=== PATIENT | female | born 1960 | race Caucasian/White ===

== ENCOUNTER → 2017-09-27 | Outpatient (CLI) | payer MEDICARE, OTHER, SELFPAY | PROVIDERS: Visit Provider Emergency Medicine | DX: R19.7 Diarrhea, unspecified (principal) | CPT/HCPCS: 87507 ==

== ENCOUNTER 2017-09-29 14:43 | Emergency (ER) | payer MEDICARE, OTHER, SELFPAY | END 2017-09-29 17:39 | disposition home or self-care (01) | PROVIDERS: Emergency Provider Emergency Medicine; Visit Provider Emergency Medicine | DX: R19.7 Diarrhea, unspecified (principal); G89.4 Chronic pain syndrome; F12.90 Cannabis use, unspecified, uncomplicated; Z79.899 Other long term (current) drug therapy; I25.10 Atherosclerotic heart disease of native coronary artery without angina pectoris; J44.9 Chronic obstructive pulmonary disease, unspecified | CPT/HCPCS: 36415; 74022; 80053; 83735; 85025; 87507; 96365; 96375; 99284 ==

== ENCOUNTER → 2017-10-24 11:08 | Outpatient (REF) | payer MEDICARE, OTHER, SELFPAY ==
[2017-10-24 13:43] LABS: Amphetamine/Metha Screen,Urine Negative ng/mL (<1000); Barbiturates Screen,Urine Negative ng/mL (<200); Benzodiazepines Screen,Urine Negative ng/mL (200); Cannabinoid Screen,Urine Positive ng/mL (<50); Cocaine Screen,Urine Negative ng/g (<300); Methadone Screen,Urine Negative ng/mL (<300); Opiate Screen,Urine Positive ng/mL (<300); Phencyclidine Screen,Urine Negative ng/mL (<25)
== END ==
LOC: LAB 11:08
PROVIDERS: Visit Provider Emergency Medicine
DX: Z79.899 Other long term (current) drug therapy (principal)
CPT/HCPCS: 80305

== ENCOUNTER → 2017-11-09 13:51 | Day surgery (SDC) | payer MEDICARE, OTHER, SELFPAY ==
[2017-11-09 14:20] VITALS: BP 136/73; PULSE 73; RESP 18; TEMP 36.4; BMI 29.6
--- NOTE | 2017-11-09 15:00 | HMH.PMPROC ---
- Procedure Date: 11/09/17 Time: 15:00 Anesthesiologist:: Иван Molina MD Complications:: None Pre-procedure Diagnosis:: Sacroiliitis Post-procedure Diagnosis:: Same Indications for Procedure:: Patient is a pleasant 57-year-old white female who we are treating for right sided hip pain. She has not a surgical candidate. She has tenderness over the right SI joint. She has a positive Coni's test on the right side. Patient had back surgery 2003. She has pain radiating to the right groin. We will do right SI joint injection to see if this will help some of her pain symptoms. Procedure Details:: Right SI joint injection under fluoroscopy Informed consent was obtained and the risks and benefits of the procedure was going to the patient. Patient was taken to the procedure room. Patient was placed prone on the procedure table. The right hip was prepped using ChloraPrep. The skin and subcutaneous tissues were anesthetized using lidocaine. I placed a 22-gauge spinal needle into the inferior aspect of the right SI joint. Needle placement was confirmed with dye. After this we injected 5 mL bupivacaine 0.25% and Depo-Medrol 40 mg into the right SI joint. The patient tolerated the procedure well with no complication. Plan and Disposition:: We will follow-up with the patient in 2-3 weeks. We will not prescribe any narcotics to this patient as she has a history of marijuana use. She may be a candidate for lumbar epidural steroid injections if this does not help.
[2017-11-09 15:07] VITALS: BP 154/77; PULSE 80; RESP 18
[2017-11-09 15:08] VITALS: BP 155/74; PULSE 80; RESP 20
[2017-11-09 15:16] VITALS: BP 130/72; PULSE 66; RESP 20; O2SAT 98
== END ==
PROVIDERS: Family Provider Emergency Medicine; PCP Emergency Medicine; Visit Provider Anesthesiology
DX: M46.1 Sacroiliitis, not elsewhere classified (principal)
CPT/HCPCS: 27096; G0260; J1040; Q9966

== ENCOUNTER 2017-11-23 16:08 | Emergency (ER) | payer MEDICARE, OTHER, SELFPAY ==
[2017-11-23 17:31] VITALS: BP 144/81; PULSE 80; RESP 20; TEMP 37.2; O2SAT 100; BMI 62.8
--- NOTE | 2017-11-23 17:37 | XR_ITS ---
XR hand LT min 3V HISTORY: Pain following injury ITS.REASON: laceration ORDERING PHYSICIAN: Bradly Serra MD PATIENT AGE: 57 years COMPARISON: None FINDINGS: No fracture or dislocation. No lytic or blastic change. There is normal mineralization.. The joint spaces are well-preserved. No significant degenerative/arthritic changes. No erosive changes evident.. IMPRESSION: Negative, no acute finding
--- NOTE | 2017-11-23 18:03 | HMH.EDGENADL ---
ED Disposition Clinical Impression: Laceration Disposition: Home, Self-Care Condition on Discharge: Fair Additional Instructions: Keep stitches dry for 48 hours and then may get hand in water Prescriptions: cephALEXin [Keflex 500mg Cap] 500 mg PO Q6H #40 cap Mupirocin [Bactroban 2% Ointment 22gm tube] 1 applicatio TP DAILY #1 tube Referrals: Ziggy Leach MD [Primary Care Provider] - Time of Disposition: 18:50 - Critical Care Critical Care Time: No Attestation: On 11/23/17, the high probability of a clinically significant, sudden or life threatening deterioration of the following system(s) required my full and direct attention, intervention and personal management. The time I documented below is in addition to time spent performing reported procedures but includes the following listed in this critical care notation. Medical Decision Making - Medical Records Medical records reviewed: Yes: I reviewed the patient's medical records. Vital Signs: 11/23/17 17:31 Temperature 98.9 F Temperature Source Tympanic Pulse Rate [Right Radial] 80 Respiratory Rate 20 Blood Pressure [Right Arm] 144/81 Blood Pressure Mean [Right Arm] 102 Blood Pressure Position [Right Arm] Sitting 02 Sat by Pulse Oximetry 100 Oxygen Delivery Method Room Air Orders (Tests/Meds): ED MEDICATIONS Discontinued Medications Generic Name Dose Route Start Last Admin Trade Name Freq PRN Reason Stop Dose Admin Tetanus/Diphtheria Toxoids 0.5 ml 11/23/17 17:37 11/23/17 17:42 Tenivac 0.5ml Syringe IM 11/23/17 17:38 0.5 ml .ONCE ONE Administration ORDERS Category Date Time Status XR hand LT min 3V Stat Exams 11/23/17 17:37 Taken - Antonio Inquiry Pt receiving controlled substance: No Antonio was queried for this patient: No General Adult HPI - General Chief complaint: Wound/Laceration Stated complaint: AO [id number] Accidental Lac L Wrist Time Seen by Provider: 11/23/17 18:02 Mode of Arrival: Ambulatory Limitations: No Limitations Description of Symptoms (Recalled from ER Triage Doc. by RN): left hand laceration after cutting her hand on a knife while fixing a sweeper' - History of Present Illness HPI narrative: Pt says she was cleaning a sweeper with a knife about 4:30 PM and accidentally cut her left hand over the hypothenar area and there is about a 4cm laceration there....given tetanus in the ED and will need stitches for this laceration Onset (ago): hour(s) Location: left, upper extremity (hand) Severity: moderate Severity scale (1-10): 5 Quality: sharp - Related Data Home Medications Medication Instructions Recorded Confirmed aripiprazole 5 mg tablet 5 mg PO ONCE 10/23/17 estradiol 1 mg tablet 1 mg PO ONCE 10/23/17 Previous Rx's Medication Instructions Recorded clonazepam 0.5 mg tablet 0.5 mg PO BID 30 Days #60 tab 10/24/17 fluoxetine 40 mg capsule 40 mg PO QAM 90 Days #90 cap 10/24/17 gabapentin 800 mg tablet 800 mg PO TID 30 Days #90 tab 10/24/17 Mupirocin [Bactroban 2% Ointment 1 applicatio TP DAILY #1 tube 11/23/17 22gm tube] cephALEXin [Keflex 500mg Cap] 500 mg PO Q6H #40 cap 11/23/17 Allergies Allergy/AdvReac Type Severity Reaction Status Date / Time No Known Allergies Allergy Verified 11/20/17 14:14 [facility] History I have reviewed the patient's past medical history: Yes Medical History: Reports:: Chronic Obstructive Pulmonary Disease (COPD), Hyperlipidemia, Hypertension Denies:: Cancer, Diabetes Mellitus Type 1, Diabetes Mellitus Type 2, MRSA, Seizures Other Medical History: Denies: Blood Transfusion Reaction Other Surgeries: Yes: Colonoscopy, Hysterectomy-Total, Other Amputation: No Fractures: No - *Social History Smoking Status: Current every day smoker Tobacco Type: cigarettes # Packs/Day (cigarettes): 1 Alcohol Intake: never Substance Use Type: denies use Occupational Status: disabled Housing: house Household Members: spouse - Ps
--- NOTE | 2017-11-23 18:08 | ED_ITS ---
ED Disposition Clinical Impression: Laceration Disposition: Home, Self-Care Condition on Discharge: Fair Additional Instructions: Keep stitches dry for 48 hours and then may get hand in water Prescriptions: cephALEXin [Keflex 500mg Cap] 500 mg PO Q6H #40 cap Mupirocin [Bactroban 2% Ointment 22gm tube] 1 applicatio TP DAILY #1 tube Referrals: Ziggy Leach MD [Primary Care Provider] - Time of Disposition: 18:50 - Critical Care Critical Care Time: No Attestation: On 11/23/17, the high probability of a clinically significant, sudden or life threatening deterioration of the following system(s) required my full and direct attention, intervention and personal management. The time I documented below is in addition to time spent performing reported procedures but includes the following listed in this critical care notation. Medical Decision Making - Medical Records Medical records reviewed: Yes: I reviewed the patient's medical records. Vital Signs: 11/23/17 17:31 Temperature 98.9 F Temperature Source Tympanic Pulse Rate [Right Radial] 80 Respiratory Rate 20 Blood Pressure [Right Arm] 144/81 Blood Pressure Mean [Right Arm] 102 Blood Pressure Position [Right Arm] Sitting 02 Sat by Pulse Oximetry 100 Oxygen Delivery Method Room Air Orders (Tests/Meds): ED MEDICATIONS Discontinued Medications Generic Name Dose Route Start Last Admin Trade Name Freq PRN Reason Stop Dose Admin Tetanus/Diphtheria Toxoids 0.5 ml 11/23/17 17:37 11/23/17 17:42 Tenivac 0.5ml Syringe IM 11/23/17 17:38 0.5 ml .ONCE ONE Administration ORDERS Category Date Time Status XR hand LT min 3V Stat Exams 11/23/17 17:37 Taken - Antonio Inquiry Pt receiving controlled substance: No Antonio was queried for this patient: No General Adult HPI - General Chief complaint: Wound/Laceration Stated complaint: AO [id number] Accidental Lac L Wrist Time Seen by Provider: 11/23/17 18:02 Mode of Arrival: Ambulatory Limitations: No Limitations Description of Symptoms (Recalled from ER Triage Doc. by RN): left hand laceration after cutting her hand on a knife while fixing a sweeper' - History of Present Illness HPI narrative: Pt says she was cleaning a sweeper with a knife about 4:30 PM and accidentally cut her left hand over the hypothenar area and there is about a 4cm laceration there....given tetanus in the ED and will need stitches for this laceration Onset (ago): hour(s) Location: left, upper extremity (hand) Severity: moderate Severity scale (1-10): 5 Quality: sharp - Related Data Home Medications Medication Instructions Recorded Confirmed aripiprazole 5 mg tablet 5 mg PO ONCE 10/23/17 estradiol 1 mg tablet 1 mg PO ONCE 10/23/17 Previous Rx's Medication Instructions Recorded clonazepam 0.5 mg tablet 0.5 mg PO BID 30 Days #60 tab 10/24/17 fluoxetine 40 mg capsule 40 mg PO QAM 90 Days #90 cap 10/24/17 gabapentin 800 mg tablet 800 mg PO TID 30 Days #90 tab 10/24/17 Mupirocin [Bactroban 2% Ointment 1 applicatio TP DAILY #1 tube 11/23/17 22gm tube] cephALEXin [Keflex 500mg Cap] 500 mg PO Q6H #40 cap 11/23/17 Allergies Allergy/AdvReac Type Severity Reaction Status D
[2017-11-23 19:23] VITALS: BP 125/75; PULSE 80; RESP 18; TEMP 36.8; O2SAT 98
== END 2017-11-23 19:23 | disposition home or self-care (01) ==
PROVIDERS: Emergency Provider General Practice; Family Provider Emergency Medicine; PCP Emergency Medicine
DX: S61.512A Laceration without foreign body of left wrist, initial encounter (principal); E78.5 Hyperlipidemia, unspecified; I10 Essential (primary) hypertension; F17.210 Nicotine dependence, cigarettes, uncomplicated; W26.0XXA Contact with knife, initial encounter; Y92.019 Unspecified place in single-family (private) house as the place of occurrence of the external cause; Z23 Encounter for immunization; J44.9 Chronic obstructive pulmonary disease, unspecified
CPT/HCPCS: 12002; 73130; 90471; 90714; 99281

== ENCOUNTER 2017-12-03 12:42 | Emergency (ER) | payer MEDICARE, OTHER, SELFPAY ==
[2017-12-03 13:17] VITALS: BP 155/80; PULSE 84; RESP 20; TEMP 37.1; O2SAT 98; BMI 29.4
--- NOTE | 2017-12-03 13:33 | XR_ITS ---
XR wrist LT 2V HISTORY: ITS.REASON: laceration, swelling. ORDERING PHYSICIAN: Luis Fernando Mcmahon MD PATIENT AGE: 57 years COMPARISON: None FINDINGS: Overlying bandage artifact. No fracture or dislocation. No radiopaque foreign body. There is a lucency through the mid aspect of an accessory center of ossification at the tip of the ulnar styloid. This however had a similar appearance on 11/23/2017 but is more apparent today due to the difference in positioning and may be developmental or due to old injury. IMPRESSION: No acute finding
--- NOTE | 2017-12-03 13:58 | HMH.EDUPEXT ---
ED Disposition Clinical Impression: Post-op pain Disposition: Home, Self-Care Condition on Discharge: Good Prescriptions: Etodolac [Etodolac 200mg Cap] 200 mg PO BID #14 cap Sulfamethoxazole/Trimethoprim [Bactrim DS tablet] 1 each PO BID #14 tab Referrals: Ziggy Leach MD [Primary Care Provider] - Time of Disposition: 14:05 - Critical Care Critical Care Time: No Attestation: On 12/03/17, the high probability of a clinically significant, sudden or life threatening deterioration of the following system(s) required my full and direct attention, intervention and personal management. The time I documented below is in addition to time spent performing reported procedures but includes the following listed in this critical care notation. Medical Decision Making - Medical Records Medical records reviewed: Yes: I reviewed the patient's medical records. Vital Signs: 12/03/17 13:17 12/03/17 14:42 Temperature 98.8 F 98.8 F Temperature Source Oral Pulse Rate 84 Pulse Rate [Right Radial] 84 Respiratory Rate 20 20 Blood Pressure 155/80 Blood Pressure [Right Arm] 155/80 Blood Pressure Mean [Right Arm] 105 Blood Pressure Source [Right Arm] Automatic Cuff Blood Pressure Position Sitting Blood Pressure Position [Right Arm] Sitting 02 Sat by Pulse Oximetry 98 Oxygen Delivery Method Room Air Room Air - Antonio Inquiry Pt receiving controlled substance: No Upper Extremity HPI - General Chief Complaint: Extremity Injury, Upper Stated Complaint: left hand injury AO [id number] Mode of Arrival: Ambulatory Limitations: Physical Limitations Description of Symptoms (Recalled from ER Triage Doc. by RN): S/P suture repair of left ulnar wrist. Pt states she took out her stitches out Sunday and they were placed here on 11/24. Wound is still open and redness and inflammation extending down her forearm. - History of Present Illness complaint: injury to: left, wrist Onset (ago): day(s) Other Extremity Injury: Left: hand, wrist Other injuries: none Handedness: right Exacerbating factors: none Context: other (s/p recent surgical repair) - Related Data Home Medications Medication Instructions Recorded Confirmed aripiprazole 5 mg tablet 5 mg PO ONCE 10/23/17 estradiol 1 mg tablet 1 mg PO ONCE 10/23/17 Previous Rx's Medication Instructions Recorded clonazepam 0.5 mg tablet 0.5 mg PO BID 30 Days #60 tab 10/24/17 fluoxetine 40 mg capsule 40 mg PO QAM 90 Days #90 cap 10/24/17 gabapentin 800 mg tablet 800 mg PO TID 30 Days #90 tab 10/24/17 Mupirocin [Bactroban 2% Ointment 1 applicatio TP DAILY #1 tube 11/23/17 22gm tube] cephALEXin [Keflex 500mg Cap] 500 mg PO Q6H #40 cap 11/23/17 Etodolac [Etodolac 200mg Cap] 200 mg PO BID #14 cap 12/03/17 Sulfamethoxazole/Trimethoprim 1 each PO BID #14 tab 12/03/17 [Bactrim DS tablet] Allergies Allergy/AdvReac Type Severity Reaction Status Date / Time No Known Allergies Allergy Verified 11/20/17 14:14 [facility] History I have reviewed the patient's past medical history: Yes Medical History: Reports:: Chronic Obstructive Pulmonary Disease (COPD), Hyperlipidemia, Hypertension Denies:: Cancer, Diabetes Mellitus Type 1, Diabetes Mellitus Type 2, MRSA, Seizures Other Medical History: Denies: Blood Transfusion Reaction Comment: Bipolar,LDD Other Surgeries: Yes: Colonoscopy, Hysterectomy-Total, Other Amputation: No Fractures: No Comment: 1987- Primary . 1991- BTL. 1997- TVH,BSO. 1999- LAP CHOLECYSTECTOMY. 2003- DISCECTOMY--LUMBAR? - Social History Smoking Status: Current every day smoker Tobacco Type: cigarettes # Packs/Day (cigarettes): 1 Alcohol Intake: never Substance Use Type: denies use Occupational Status: disabled Housing: house Household Members: spouse - Psychiatric History Expresses thoughts of harming self/others: None Suicide Plan Description: No Plan Family Hx:: Heart Attack Comment: alzheimer,parkinsons ROS Obtained: Yes
--- NOTE | 2017-12-03 14:05 | ED_ITS ---
ED Disposition Clinical Impression: Post-op pain Disposition: Home, Self-Care Condition on Discharge: Good Prescriptions: Etodolac [Etodolac 200mg Cap] 200 mg PO BID #14 cap Sulfamethoxazole/Trimethoprim [Bactrim DS tablet] 1 each PO BID #14 tab Referrals: Ziggy Leach MD [Primary Care Provider] - Time of Disposition: 14:05 - Critical Care Critical Care Time: No Attestation: On 12/03/17, the high probability of a clinically significant, sudden or life threatening deterioration of the following system(s) required my full and direct attention, intervention and personal management. The time I documented below is in addition to time spent performing reported procedures but includes the following listed in this critical care notation. Medical Decision Making - Medical Records Medical records reviewed: Yes: I reviewed the patient's medical records. Vital Signs: 12/03/17 13:17 12/03/17 14:42 Temperature 98.8 F 98.8 F Temperature Source Oral Pulse Rate 84 Pulse Rate [Right Radial] 84 Respiratory Rate 20 20 Blood Pressure 155/80 Blood Pressure [Right Arm] 155/80 Blood Pressure Mean [Right Arm] 105 Blood Pressure Source [Right Arm] Automatic Cuff Blood Pressure Position Sitting Blood Pressure Position [Right Arm] Sitting 02 Sat by Pulse Oximetry 98 Oxygen Delivery Method Room Air Room Air - Antonio Inquiry Pt receiving controlled substance: No Upper Extremity HPI - General Chief Complaint: Extremity Injury, Upper Stated Complaint: left hand injury AO [id number] Mode of Arrival: Ambulatory Limitations: Physical Limitations Description of Symptoms (Recalled from ER Triage Doc. by RN): S/P suture repair of left ulnar wrist. Pt states she took out her stitches out Sunday and they were placed here on 11/24. Wound is still open and redness and inflammation extending down her forearm. - History of Present Illness complaint: injury to: left, wrist Onset (ago): day(s) Other Extremity Injury: Left: hand, wrist Other injuries: none Handedness: right Exacerbating factors: none Context: other (s/p recent surgical repair) - Related Data Home Medications Medication Instructions Recorded Confirmed aripiprazole 5 mg tablet 5 mg PO ONCE 10/23/17 estradiol 1 mg tablet 1 mg PO ONCE 10/23/17 Previous Rx's Medication Instructions Recorded clonazepam 0.5 mg tablet 0.5 mg PO BID 30 Days #60 tab 10/24/17 fluoxetine 40 mg capsule 40 mg PO QAM 90 Days #90 cap 10/24/17 gabapentin 800 mg tablet 800 mg PO TID 30 Days #90 tab 10/24/17 Mupirocin [Bactroban 2% Ointment 1 applicatio TP DAILY #1 tube 11/23/17 22gm tube] cephALEXin [Keflex 500mg Cap] 500 mg PO Q6H #40 cap 11/23/17 Etodolac [Etodolac 200mg Cap] 200 mg PO BID #14 cap 12/03/17 Sulfamethoxazole/Trimethoprim 1 each PO BID #14 tab 12/03/17 [Bactrim DS tablet] Allergies Allergy/AdvReac Type Severity Reaction Status Date / Time No Known Allergies Allergy Verified 11/20/17 14:14 [facility] History I have reviewed the patient's past medical history: Yes Medical History: Reports:: Chronic Obstructive Pulmonary Disease (COPD), Hyperlipidemia, Hypertension Denies:: Cancer, Diabetes Mellitus Type 1, Diabetes Mellitus Type 2, MRSA, Seizures Other Medical History: Denies: Bloo
[2017-12-03 14:42] VITALS: BP 155/80; PULSE 84; RESP 20; TEMP 37.1; O2SAT 98
== END 2017-12-03 14:46 | disposition home or self-care (01) ==
PROVIDERS: Emergency Provider Emergency Medicine; Family Provider Emergency Medicine; PCP Emergency Medicine
DX: G89.18 Other acute postprocedural pain (principal); M25.532 Pain in left wrist; I10 Essential (primary) hypertension; J44.9 Chronic obstructive pulmonary disease, unspecified; Z79.890 Hormone replacement therapy; Z79.899 Other long term (current) drug therapy
CPT/HCPCS: 73100; 99282

== ENCOUNTER → 2017-12-24 13:15 | Outpatient (POV) | payer MEDICARE, OTHER, SELFPAY ==
[2017-12-24 13:56] VITALS: BP 149/74; PULSE 89; RESP 16; O2SAT 98; BMI 29.2
--- NOTE | 2017-12-24 14:43 | P.CONS_ITS ---
[facility] Pain Management SOAP Note Subjective:: This patient is a pleasant 57-year-old white female who we are treating for right sided hip pain. She received a right SI joint injection which did not give her much benefit. She says that she has had injections previously had a pain clinic in [facility]. I have offered her a lumbar epidural steroid injection. She has had previous back surgery in 2003. I believe that she would benefit from a lumbar epidural steroid injections since she did not get any benefit from the SI joint injection. Patient does not seem interested at this time. She is going to think about it and let us know. Objective:: Alert and oriented ?3 in no acute distress. Patient does have an antalgic gait. Motor strength of the lower extremities is 5/5. There is no gross sensory deficit. She is tender over lower lumbar spine. Assessment:: Degenerative disc disease of lumbar spine with postlaminectomy syndrome and lumbar radiculopathy symptoms Plan:: She is going to think about a lumbar epidural steroid injection and let us know. Will follow up with her on a as needed basis.
== END ==
PROVIDERS: Family Provider Emergency Medicine; PCP Emergency Medicine; Visit Provider Anesthesiology
DX: M54.16 Radiculopathy, lumbar region (principal)
CPT/HCPCS: 99212

== ENCOUNTER → 2018-04-16 13:10 | Outpatient (REF) | payer MEDICARE, OTHER, SELFPAY ==
[2018-04-16 19:01] LABS: Amphetamine/Metha Screen,Urine Negative ng/mL (<1000); Barbiturates Screen,Urine Negative ng/mL (<200); Benzodiazepines Screen,Urine Negative ng/mL (<200); Cannabinoid Screen,Urine Positive ng/mL (<50); Cocaine Screen,Urine Negative ng/mL (<300); Methadone Screen,Urine Negative ng/mL (<300); Opiate Screen,Urine Positive ng/mL (<300); Phencyclidine Screen,Urine Negative ng/mL (<25)
[2018-05-01 07:18] LABS: Alprazolam Negative (Cutoff=100); Benzodiazepines Positive ng/mL (Cutoff=100); Clonazepam Positive (.); Codeine Negative (Cutoff=100); Flurazepam Negative (Cutoff=100); Hydrocodone Positive (.); Hydromorphone Negative (Cutoff=100); Lorazepam Negative (Cutoff=100); Midazolam Negative (Cutoff=100); Morphine Negative (Cutoff=100); Temazepam Negative (Cutoff=100); Triazolam Negative (Cutoff=100)
[2018-05-03 06:32] LABS: Clonazepam Confirm 115 ng/mL (Cutoff=100); Hydrocodone Confirm 1553 ng/mL (Cutoff=100); Opiates Positive (.)
== END ==
LOC: LAB 13:10
PROVIDERS: Physician Assistant; Visit Provider Emergency Medicine
DX: Z79.899 Other long term (current) drug therapy (principal)
CPT/HCPCS: 80305; 80346; 80361; G0480

== ENCOUNTER → 2018-07-01 12:57 | Outpatient (CLI) | payer MEDICARE, OTHER, SELFPAY ==
[2018-07-01 13:25] VITALS: PULSE 77; PULSE 80
== END ==
PROVIDERS: Family Provider Emergency Medicine; PCP Emergency Medicine; Visit Provider Emergency Medicine
DX: J44.9 Chronic obstructive pulmonary disease, unspecified (principal)
CPT/HCPCS: 94060; 94640

== ENCOUNTER → 2018-10-18 19:15 | Outpatient (CLI) | payer MEDICARE, OTHER, SELFPAY ==
[2018-10-18 20:32] LABS: Amphetamine/Metha Screen,Urine Negative ng/mL (<1000); Barbiturates Screen,Urine Negative ng/mL (<200); Benzodiazepines Screen,Urine Negative ng/mL (<200); Cannabinoid Screen,Urine Positive ng/mL (<50); Cocaine Screen,Urine Negative ng/mL (<300); Methadone Screen,Urine Negative ng/mL (<300); Opiate Screen,Urine Positive ng/mL (<300); Phencyclidine Screen,Urine Negative ng/mL (<25)
[2018-10-25 08:47] LABS: Alprazolam Negative (Cutoff=100); Benzodiazepines Positive ng/mL (Cutoff=100); Clonazepam Positive (.); Codeine Negative (Cutoff=100); Flurazepam Negative (Cutoff=100); Hydrocodone Positive (.); Hydromorphone Positive (.); Lorazepam Negative (Cutoff=100); Midazolam Negative (Cutoff=100); Morphine Negative (Cutoff=100); Temazepam Negative (Cutoff=100); Triazolam Negative (Cutoff=100)
[2018-10-25 17:15] LABS: Clonazepam Confirm 173 ng/mL (Cutoff=100); Hydrocodone Confirm 1789 ng/mL (Cutoff=100); Hydromorphone Confirm 113 ng/mL (Cutoff=100); Opiates Positive (.)
== END ==
PROVIDERS: Visit Provider Emergency Medicine
DX: Z79.899 Other long term (current) drug therapy (principal)
CPT/HCPCS: 80305; 80346; 80361; G0480

== ENCOUNTER → 2019-04-23 17:58 | Outpatient (CLI) | payer MEDICARE, OTHER, SELFPAY ==
[2019-04-23 19:04] LABS: Amphetamine/Metha Screen,Urine Negative ng/mL (<1000); Barbiturates Screen,Urine Negative ng/mL (<200); Benzodiazepines Screen,Urine Negative ng/mL (<200); Cannabinoid Screen,Urine Negative ng/mL (<50); Cocaine Screen,Urine Negative ng/mL (<300); Methadone Screen,Urine Negative ng/mL (<300); Opiate Screen,Urine Negative ng/mL (<300); Phencyclidine Screen,Urine Negative ng/mL (<25)
[2019-04-29 20:08] LABS: Alprazolam Negative (Cutoff=100); Benzodiazepines Positive ng/mL (Cutoff=100); Clonazepam Positive (.); Flurazepam Negative (Cutoff=100); Lorazepam Negative (Cutoff=100); Midazolam Negative (Cutoff=100); Temazepam Negative (Cutoff=100); Triazolam Negative (Cutoff=100)
[2019-05-01 08:05] LABS: Clonazepam Confirm 158 ng/mL (Cutoff=100)
== END ==
PROVIDERS: Visit Provider Emergency Medicine
DX: Z79.899 Other long term (current) drug therapy (principal)
CPT/HCPCS: 80305; 80346

== ENCOUNTER → 2019-07-23 17:46 | Outpatient (CLI) | payer MEDICARE, OTHER, SELFPAY ==
[2019-07-23 20:20] LABS: Amphetamine/Metha Screen,Urine Negative ng/mL (<1000); Barbiturates Screen,Urine Negative ng/mL (<200); Benzodiazepines Screen,Urine Negative ng/mL (<200); Cannabinoid Screen,Urine Negative ng/mL (<50); Cocaine Screen,Urine Negative ng/mL (<300); Methadone Screen,Urine Negative ng/mL (<300); Opiate Screen,Urine Negative ng/mL (<300); Phencyclidine Screen,Urine Negative ng/mL (<25)
[2019-07-28 08:30] LABS: Alprazolam Negative (Cutoff=100); Benzodiazepines Positive ng/mL (Cutoff=100); Clonazepam Positive (.); Flurazepam Negative (Cutoff=100); Lorazepam Negative (Cutoff=100); Midazolam Negative (Cutoff=100); Temazepam Negative (Cutoff=100); Triazolam Negative (Cutoff=100)
[2019-07-28 14:29] LABS: Clonazepam Confirm 122 ng/mL (Cutoff=100)
== END ==
PROVIDERS: Visit Provider Emergency Medicine
DX: Z79.899 Other long term (current) drug therapy (principal)
CPT/HCPCS: 80305; 80346

== ENCOUNTER → 2019-10-21 14:01 | Outpatient (CLI) | payer MEDICARE, OTHER, SELFPAY ==
[2019-10-22 22:48] LABS: Amphetamine/Metha Screen,Urine Negative ng/mL (<1000); Barbiturates Screen,Urine Negative ng/mL (<200); Benzodiazepines Screen,Urine Negative ng/mL (<200); Cannabinoid Screen,Urine Negative ng/mL (<50); Cocaine Screen,Urine Negative ng/mL (<300); Methadone Screen,Urine Negative ng/mL (<300); Opiate Screen,Urine Negative ng/mL (<300); Phencyclidine Screen,Urine Negative ng/mL (<25)
== END ==
PROVIDERS: Visit Provider Emergency Medicine
DX: M79.2 Neuralgia and neuritis, unspecified (principal)
CPT/HCPCS: 80305

== ENCOUNTER → 2019-10-23 12:06 | Outpatient (CLI) | payer MEDICARE, OTHER, SELFPAY ==
--- NOTE | 2019-10-23 12:13 | XR_ITS ---
PROCEDURE: XR FEMUR RT 2V CLINICAL INDICATION: leg pain Pain COMPARISON: XR HIP RT 2-3V W/PELVIS from 10/23/2019 FINDINGS: No fracture or dislocation. No lytic or blastic change. There is normal mineralization. No significant degenerative change Other findings:None. IMPRESSION: Negative, no acute finding Dictated by: Tate Burnett MD 10/23/2019 16:48 Electronically signed by Tate Burnett MD in [place] 10/23/2019 16:48
--- NOTE | 2019-10-23 12:13 | XR_ITS ---
PROCEDURE: XR HIP RT 2-3V W/PELVIS CLINICAL INDICATION: hip pain COMPARISON: [id number] HIP RT 2-3V W/PELVIS IF PERFOR from 06/26/2017 FINDINGS: No fracture or dislocation is evident. No significant degenerative change. No lytic or blastic change. Unremarkable soft tissues. IMPRESSION: No acute findings. Dictated by: Tate Burnett MD 10/23/2019 16:49 Electronically signed by Tate Burnett MD in [place] 10/23/2019 16:49
== END ==
PROVIDERS: PCP Emergency Medicine; Visit Provider Emergency Medicine
DX: M25.551 Pain in right hip (principal); M79.604 Pain in right leg
CPT/HCPCS: 73502; 73552

== ENCOUNTER 2020-03-04 13:25 | Emergency (ER) | payer MEDICARE, OTHER, SELFPAY ==
[2020-03-04 13:21] VITALS: BP 137/79; PULSE 89; RESP 20; TEMP 36.6; O2SAT 92; BMI 27.3
--- NOTE | 2020-03-04 13:28 | PC.NURSE ---
Pt on the phone at this time.
--- NOTE | 2020-03-04 13:35 | HMH.EDOD ---
ED Disposition Clinical Impression: Drug overdose Disposition: Home, Self-Care Condition on Discharge: Good Instructions: DI for Opioid Addiction Referrals: Provider,Referral, [Primary Care Provider] - - Critical Care Critical Care Time: No Attestation: On 03/04/20, the high probability of a clinically significant, sudden or life threatening deterioration of the following system(s) required my full and direct attention, intervention and personal management. The time I documented below is in addition to time spent performing reported procedures but includes the following listed in this critical care notation. Medical Decision Making - Medical Records Medical records reviewed: Yes: I reviewed the patient's medical records. - Antonio Inquiry Pt receiving controlled substance: No Vital Signs: 03/04/20 13:21 Temperature 97.9 F Temperature Source Oral Pulse Rate [Radial] 89 Respiratory Rate 20 Blood Pressure [Right Arm] 137/79 Blood Pressure Mean [Right Arm] 98 Blood Pressure Source [Right Arm] Automatic Cuff Blood Pressure Position [Right Arm] Sitting 02 Sat by Pulse Oximetry 92 L Oxygen Delivery Method Nasal Cannula Oxygen Flow Rate (LPM) 2 - Lab Data Lab results reviewed: Yes: I reviewed the patient's lab results. Medical Decision Narrative: This patient does not know how she ingested some any pills. She states that a stranger may have given her the medication. Patient should not receive any more controlled substances for the rest of her remaining life. Overdose HPI - General Chief Complaint: Overdose Stated Complaint: overdose Time Seen by Provider: 03/04/20 13:35 Mode of Arrival: EMS Source of Information: Patient Limitations: No Limitations Description of Symptoms (Recalled from ER Triage Doc. by RN): Per EMS patient was found snoring and unresposive. Called out as an overdose. 2mg Narcan Im given enroute. - History of Present Illness HPI Narrative: 59-year-old female presents the ED after an apparent overdose at the [facility]. EMS were called to the scene for a nonresponsive 59-year-old female. When they got there they noticed that she is on pain medication so they gave her 2 mg of Narcan IM patient arouses almost immediately. Here in the ED all of her vital signs are stable she is alert and oriented just complaining of pain and having some nausea. - Related Data Previous Rx's Medication Instructions Recorded Mupirocin [Bactroban 2% Ointment 1 applicatio TP DAILY #1 tube 11/23/17 22gm tube] fluoxetine 20 mg capsule 20 mg PO DAILY #30 cap 12/01/19 risperidone 0.5 mg tablet 0.5 mg PO BID #60 tab 12/01/19 fluticasone furoate 100 See Rx Instructions .ROUTE 01/20/20 mcg-vilanterol 25 mcg/dose .COMPLEX #60 unspecified inhalation powder albuterol sulfate 90 mcg/actuation 2 puff INHALATION Q4-6H PRN #18 g 02/16/20 aerosol inhaler citalopram 10 mg tablet 10 mg PO QAM #90 tab 03/02/20 clonazepam 0.5 mg tablet 0.5 mg PO TID 30 Days #90 tab 03/03/20 gabapentin 800 mg tablet 800 mg PO TID 30 Days #90 tab 03/03/20 hydrocodone 5 mg-acetaminophen 325 1 tab PO BID #60 tab 03/03/20 mg tablet Allergies Allergy/AdvReac Type Severity Reaction Status Date / Time No Known Allergies Allergy Verified 03/02/20 15:50 [facility] History - Hepatitis A Screen Drug use history?: No High risk sexual behaviors?: No History of sexually transmitted infection?: No Currently employed?: No Childcare worker?: No Do you have indoor plumbing?: Yes Do you have electricity?: Yes Attestation statement:: This patient has been screened for Hepatitis A risk factors. I have reviewed the patient's past medical history: Yes Medical History: Reports:: Anxiety, Arrhythmia, Chronic Obstructive Pulmonary Disease (COPD), Depression, Hyperlipidemia, Hypertension Denies:: Cancer, Diabetes Mellitus Type 1, Diabetes Mellitus Type 2, MRSA, Seizures Other Medical History: Reports: Other. Denies: Blood T
[2020-03-04 13:58] VITALS: BP 138/78; PULSE 88; RESP 18; TEMP 37.1; O2SAT 96
== END 2020-03-04 14:00 | disposition left against medical advice (07) ==
PROVIDERS: Emergency Provider Family Medicine
DX: T50.901A Poisoning by unspecified drugs, medicaments and biological substances, accidental (unintentional), initial encounter (principal); M79.2 Neuralgia and neuritis, unspecified; F41.8 Other specified anxiety disorders; J44.9 Chronic obstructive pulmonary disease, unspecified; E78.5 Hyperlipidemia, unspecified; I10 Essential (primary) hypertension; Z90.79 Acquired absence of other genital organ(s); F17.210 Nicotine dependence, cigarettes, uncomplicated
CPT/HCPCS: 99281